=== PATIENT | female | born 1985 | race Caucasian/White ===

== ENCOUNTER 2019-05-26 05:38 | Emergency (ER) | payer MEDICAID ==
[~2019-05-26] VITALS: Ht 162.6 cm; Wt 64.0 kg
[2019-05-26 09:10] LABS: BASOPHILS % 0.1 % (0.0-2.0); EOSINOPHILS % 0.5 % (0.0-5.0); HEMATOCRIT. 40.9 % (36.0-48.0); LYMPHOCYTES % 28.1 % (20.0-50.0); MEAN CORPUSCULAR HEMOGLOBIN 29.8 pg (28.0-32.0); MEAN CORPUSCULAR VOLUME 86.7 fL (81.0-99.0); MEAN PLATELET VOLUME 8.5 fl (7.4-10.4); MONOCYTES % 4.5 % (2.0-8.0); NEUTROPHILS % 66.8 % (40.0-76.0); PLATELET 246 x1000/uL (130-400); RED BLOOD CELL COUNT 4.72 mill/uL (4.2-5.4); RED CELL DISTRIBUTION WIDTH 12.6 % (11.6-14.6)
[2019-05-26 09:11] LABS: CLARITY URINE CLEAR (CLEAR); COLOR URINE YELLOW (YELLOW); KETONES URINE NEGATIVE (NEGATIVE); LEUKOCYTE ESTERASE URINE NEGATIVE (NEGATIVE); NITRITE URINE NEGATIVE (NEGATIVE); OCCULT BLOOD URINE 2+ (NEGATIVE); PROTEIN URINE NEGATIVE (NEGATIVE); SPECIFIC GRAVITY URINE 1.016 (1.005-1.030); UROBILINOGEN URINE 0.2 E.U./dL (0.2-1.0)
[2019-05-26 09:18] LABS: CHLORIDE 109 mEq/L (98-107)
[2019-05-26 09:43] LABS: B-HCG QUANTITATIVE 42063 mIU/mL (<3)
[2019-05-26 12:09] VITALS: BP 108/63
== END 2019-05-26 12:09 | disposition home or self-care (01) ==
LOC: ER 05:38
DX: O20.0 Threatened abortion (principal); Z3A.11 11 weeks gestation of pregnancy
CPT/HCPCS: 36415; 76801; 81003; 84702; 86850; 86900; 99284

== ENCOUNTER 2019-11-07 18:28 | Observation (INO) | payer MEDICAID ==
[~2019-11-07] VITALS: Ht 157.5 cm; Wt 69.9 kg
[2019-11-07] MEDS ORDERED: PNV1TABL76 PO (18:54)
[2019-11-07] MEDS: LACTATED RINGERS 1,000 ML IV SCH ×2 (20:14→21:07)
[2019-11-07 20:57] LABS: CLARITY URINE CLEAR (CLEAR); COLOR URINE YELLOW (YELLOW); KETONES URINE NEGATIVE (NEGATIVE); LEUKOCYTE ESTERASE URINE 3+ (NEGATIVE); NITRITE URINE NEGATIVE (NEGATIVE); OCCULT BLOOD URINE TRACE (NEGATIVE); PROTEIN URINE NEGATIVE (NEGATIVE); SPECIFIC GRAVITY URINE 1.007 (1.005-1.030); UROBILINOGEN URINE 0.2 E.U./dL (0.2-1.0)
[2019-11-07] MEDS ORDERED: BETAMETHASONE ACET/BETAMET 30 MG/5 ML VIAL IM NR (21:45)
[2019-11-07] MEDS ORDERED: CEFAZOLIN 2,000 MG in DEXT 5% WATER 100 ML IV NR (22:00)
== END 2019-11-07 23:50 | disposition home or self-care (01) ==
LOC: 8 EST LDRP 18:28
PROVIDERS: ADMIT Obstetrics & Gynecology; ATTEND Obstetrics & Gynecology
DX: O26.893 Other specified pregnancy related conditions, third trimester (principal); R10.9 Unspecified abdominal pain; O99.89 Other specified diseases and conditions complicating pregnancy, childbirth and the puerperium; M54.5 Low back pain; Z3A.36 36 weeks gestation of pregnancy
CPT/HCPCS: 81003; 87086; 96365; 96372; 99281; G0378; J0690; J0702; J7060; 96360; 96361

== ENCOUNTER 2019-11-08 09:23 | Observation (INO) | payer MEDICAID ==
[~2019-11-08] VITALS: Ht 157.5 cm; Wt 69.9 kg
[~2019-11-08 09:23] MED LIST: PNV1TABL76 PO
[2019-11-08] MEDS ORDERED: BETAMETHASONE ACET/BETAMET 30 MG/5 ML VIAL IM NR (21:45)
== END 2019-11-08 21:58 | disposition home or self-care (01) ==
LOC: UNDOADMOB 09:23 → 8 EST LDRP 09:23
PROVIDERS: ADMIT Obstetrics & Gynecology; ATTEND Obstetrics & Gynecology
DX: Z34.83 Encounter for supervision of other normal pregnancy, third trimester (principal); Z3A.36 36 weeks gestation of pregnancy
CPT/HCPCS: 96372; 99281; G0378